=== PATIENT | female | born 1980 | race Caucasian/White ===

== ENCOUNTER 2018-09-13 16:53 | Outpatient (CLI) | payer OTHER ==
[~2018-09-13] VITALS: Ht 147.3 cm; Wt 65.0 kg
[~2018-09-13 16:53] MED LIST: ALBU8.5H5 INH; ETON1VAG VG; METH10TA6 PO; POTASSIUM IODINE PO
== END 2018-09-13 23:59 | disposition home or self-care (01) ==
LOC: MERGE 16:53 → LDOP 16:53 → UNMERGE 16:53 → LDOP 23:59
PROVIDERS: ATTEND Obstetrics & Gynecology
DX: O09.513 Supervision of elderly primigravida, third trimester (principal); O36.8130 Decreased fetal movements, third trimester, not applicable or unspecified; Z3A.33 33 weeks gestation of pregnancy
CPT/HCPCS: 59025; 76819; 99201; G0463

== ENCOUNTER 2018-10-16 13:40 | Inpatient (IN) | payer OTHER ==
[~2018-10-16] VITALS: Ht 147.3 cm; Wt 65.5 kg
[2018-10-26] MEDS ORDERED: OXYTOCIN 30U/ 0.9% NaCL 500ML 500 ML IV ONE (08:11)
[2018-10-26] MEDS ORDERED: AMPICILLIN 2 GM in SODIUM CHLORIDE 0.9% 100 ML IVPB ONE (08:11)
[2018-10-26] MEDS ORDERED: OXYTOCIN 30U/ 0.9% NaCL 500ML 500 ML IV PRN (08:11)
[2018-10-26 08:31] LABS: BASOPHILS # (AUTO) 0.05 x10^3/uL (0-0.1); BASOPHILS % (AUTO) 0 % (0-1); EOSINOPHILS # (AUTO) 0.26 x10^3/uL (0-0.4); EOSINOPHILS % (AUTO) 2 % (1-7); LYMPHOCYTES # (AUTO) 2.12 x10^3/uL (1-3.4); LYMPHOCYTES % (AUTO) 17 % (22-44); MD NO; MEAN CORPUSCULAR HEMOGLOBIN 30.8 pg (27.0-34.8); MEAN CORPUSCULAR VOLUME 93.1 fL (80-100); MEAN PLATELET VOLUME 8.6 fL (7.4-10.4); MONOCYTES # (AUTO) 0.87 x10^3/uL (0.2-0.8); MONOCYTES % (AUTO) 7 % (2-9); NEUTROPHILS # (AUTO) 9.17 x10^3/uL (1.8-6.8); NEUTROPHILS % (AUTO) 74 % (42-75); PLATELET COUNT 158 x10^3/uL (130-400); RED BLOOD COUNT 3.91 x10^6/uL (3.82-5.3); RED CELL DISTRIBUTION WIDTH 13.8 % (9.6-15.2)
[2018-10-26] MEDS ORDERED: OXYTOCIN 30U/ 0.9% NaCL 500ML 500 ML ONE (08:41)
[2018-10-26] MEDS: LACTATED RINGERS 1,000 ML IV SCH ×3 (08:46→18:33)
[2018-10-26] MEDS ORDERED: PLEASE ENTER HEIGHT AND WEIGHT MC SCH (09:00)
[2018-10-26 09:24] VITALS: BP 108/66
[2018-10-26] MEDS ORDERED: NEWBORN KIT ONE (10:03)
[2018-10-26] MEDS: AMPICILLIN 1 GM in SODIUM CHLORIDE 0.9% 100 ML IVPB SCH ×3 (12:19→20:30)
[2018-10-26] MEDS ORDERED: FENTANYL PF 100 MCG/2ML ONE ×4 (14:03→17:22)
[2018-10-26] MEDS: FENTANYL PF 100 MCG/2ML IVPush PRN ×4 (14:05→17:23)
[2018-10-26] MEDS ORDERED: ONDANSETRON 2MG/ML, 2ML ONE (15:43)
[2018-10-26] MEDS ORDERED: ONDANSETRON 2MG/ML, 2ML IVPush PRN ×2 (16:00→19:00)
[2018-10-26] MEDS: D5%-LACTATED RINGERS 1,000 ML IV SCH ×2 (16:11→19:17)
[2018-10-26] MEDS ORDERED: FENTANYL/BUPIV./NS/PF 250 ML EPIDCONT ONE (18:00)
[2018-10-26] MEDS ORDERED: BUPIVACAINE 0.25% ONE (18:07)
[2018-10-26] MEDS ORDERED: PREN1TAB60 PO (18:14)
[2018-10-26] MEDS ORDERED: LEVO150T5 PO (18:15)
[2018-10-26] MEDS ORDERED: LACTATED RINGERS 1,000 ML IV SCH (18:54)
[2018-10-26] MEDS ORDERED: FENTANYL PF 500 MCG, BUPIVACAINE/PF 0.5%, 30ML 62.5 ML in SODIUM CHLORIDE 0.9% 177.5 ML EPIDCONT SCH (18:54)
[2018-10-26] MEDS ORDERED: NALOXONE 0.4 MG/ML, 1ML IVPush PRN (19:00)
[2018-10-26] MEDS ORDERED: EPHEDRINE 50 MG/ML, 1ML IVPush PRN (19:00)
[2018-10-26] MEDS ORDERED: LACTATED RINGERS 1,000 ML IVBOLUS PRN (19:00)
[2018-10-26] MEDS ORDERED: DIPHENHYDRAMINE 50 MG/ML, 1ML IVPush PRN (19:00)
[2018-10-26] MEDS ORDERED: MISOPROSTOL 200 MCG TABLET ONE (19:11)
[2018-10-26] MEDS ORDERED: LIDOCAINE 1%, 20ML ONE (19:11)
[2018-10-27] MEDS: D5%-LACTATED RINGERS 1,000 ML IV SCH (00:11)
[2018-10-27] MEDS ORDERED: SODIUM CITRATE/CITRIC ACID 15 ML UDC ONE (00:27)
[2018-10-27] MEDS ORDERED: METOCLOPRAMIDE 5 MG/ML, 2ML ONE (00:28)
[2018-10-27] MEDS ORDERED: LACTATED RINGERS 1,000 ML IVBOLUS ONE (01:00)
[2018-10-27] MEDS ORDERED: SODIUM CITRATE/CITRIC ACID 15 ML UDC PO ONE (01:00)
[2018-10-27] MEDS ORDERED: METOCLOPRAMIDE 5 MG/ML, 2ML IV ONE (01:00)
[2018-10-27] MEDS: AMPICILLIN 1 GM in SODIUM CHLORIDE 0.9% 100 ML IVPB SCH (01:01)
[2018-10-27] MEDS ORDERED: CLINDAMYCIN PMX 900MG/50ML 50 ML ONE (01:03)
[2018-10-27] MEDS: OXYTOCIN 30U/ 0.9% NaCL 500ML 500 ML IV SCH ×3 (02:24→22:24)
[2018-10-27] MEDS: LACTATED RINGERS 1,000 ML IV SCH ×6 (02:24→22:24)
[2018-10-27] MEDS ORDERED: ONDANSETRON 2MG/ML, 2ML IV PRN ×2 (02:30)
[2018-10-27] MEDS ORDERED: SIMETHICONE 80 MG CHEW TAB PO PRN (02:30)
[2018-10-27] MEDS ORDERED: METHYLERGONOVINE 0.2 MG/ML IM PRN (02:30)
[2018-10-27] MEDS ORDERED: OXYcodone 5 MG/5 ML ORAL.SOL UDC PO PRN (02:30)
[2018-10-27] MEDS ORDERED: MORPHINE SULFATE 4 MG/ML, 1ML IVPush PRN ×2 (02:30)
[2018-10-27] MEDS ORDERED: morphine SULFATE 10 MG/ML, 1ML IM PRN (02:30)
[2018-10-27] MEDS ORDERED: DEXAMETHASONE 4 MG/ML, 1ML IV PRN (02:30)
[2018-10-27] MEDS ORDERED: EPHEDRINE 50 MG/ML, 1ML IVPush PRN (02:30)
[2018-10-27] MEDS ORDERED: CARBOPROST TROMETHAMINE 250 MCG/ML, 1ML IM PRN (02:30)
[2018-10-27] MEDS ORDERED: MISOPROSTOL 200 MCG TABLET PR PRN (02:30)
[2018-10-27] MEDS ORDERED: ACETAMINOPHEN 325 MG TABLET PO PRN (02:30)
[2018-10-27] MEDS ORDERED: MEPERIDINE/PF 25MG/0.5ML IVPush PRN (02:30)
[2018-10-27] MEDS ORDERED: PROMETHAZINE 25 MG/ML, 1ML IV PRN (02:30)
[2018-10-27] MEDS ORDERED: FENTANYL PF 100 MCG/2ML IV PRN (02:30)
[2018-10-27] MEDS ORDERED: DIPHENHYDRAMINE 50 MG/ML, 1ML IM PRN (02:30)
[2018-10-27] MEDS ORDERED: OXYcodone 5 MG/5 ML ORAL.SOL UDC ONE (02:39)
[2018-10-27 03:15] VITALS: BP 128/73
[2018-10-27] MEDS: LEVOTHYROXINE 150 MCG TABLET PO SCH ×2 (06:00→07:13)
[2018-10-27 07:22] VITALS: BP 100/57
[2018-10-27] MEDS: OXYcodone/APAP 5/325MG TABLET PO PRN ×5 (07:41→22:22)
[2018-10-27] MEDS: DOCUSATE 100 MG CAPSULE PO PRN ×2 (07:41→22:22)
[2018-10-27] MEDS: PRENATAL VIT/IRON/FA 1 EACH TABLET PO SCH (07:41)
[2018-10-27 10:10] LABS: MEAN CORPUSCULAR HEMOGLOBIN 30.9 pg (27.0-34.8); MEAN CORPUSCULAR VOLUME 93.7 fL (80-100); MEAN PLATELET VOLUME 8.6 fL (7.4-10.4); PLATELET COUNT 110 x10^3/uL (130-400); RED BLOOD COUNT 3.12 x10^6/uL (3.82-5.3); RED CELL DISTRIBUTION WIDTH 13.4 % (9.6-15.2)
[2018-10-27 10:25] LABS: BASOPHILS # (AUTO) 0.03 x10^3/uL (0-0.1); BASOPHILS % (AUTO) 0 % (0-1); EOSINOPHILS # (AUTO) 0.01 x10^3/uL (0-0.4); EOSINOPHILS % (AUTO) 0 % (1-7); LYMPHOCYTES % (AUTO) 12 % (22-44); MD SCAN; MONOCYTES # (AUTO) 0.74 x10^3/uL (0.2-0.8); MONOCYTES % (AUTO) 5 % (2-9); NEUTROPHILS # (AUTO) 13.02 x10^3/uL (1.8-6.8); NEUTROPHILS % (AUTO) 83 % (42-75)
[2018-10-27 12:00] VITALS: BP 105/64
[2018-10-27] MEDS: IBUPROFEN 600 MG TABLET PO PRN ×2 (12:04→22:22)
[2018-10-27 16:33] VITALS: BP 108/70
[2018-10-27 20:20] VITALS: BP 114/75
[2018-10-28 01:00] VITALS: BP 98/60
[2018-10-28] MEDS: LACTATED RINGERS 1,000 ML IV SCH ×5 (02:24→19:38)
[2018-10-28] MEDS: OXYcodone/APAP 5/325MG TABLET PO PRN ×4 (04:57→22:06)
[2018-10-28] MEDS: IBUPROFEN 600 MG TABLET PO PRN ×3 (04:57→20:43)
[2018-10-28] MEDS: LEVOTHYROXINE 150 MCG TABLET PO SCH (06:14)
[2018-10-28] MEDS: OXYTOCIN 30U/ 0.9% NaCL 500ML 500 ML IV SCH ×2 (08:11→19:38)
[2018-10-28] MEDS: DOCUSATE 100 MG CAPSULE PO PRN ×2 (08:20→20:44)
[2018-10-28] MEDS: PRENATAL VIT/IRON/FA 1 EACH TABLET PO SCH (08:20)
[2018-10-28 08:25] VITALS: BP 107/66
[2018-10-28 20:45] VITALS: BP 127/47
[2018-10-29] MEDS: LACTATED RINGERS 1,000 ML IV SCH ×2 (01:51→02:31)
[2018-10-29] MEDS: IBUPROFEN 600 MG TABLET PO PRN ×3 (02:43→18:26)
[2018-10-29] MEDS: OXYcodone/APAP 5/325MG TABLET PO PRN ×3 (02:43→18:26)
[2018-10-29] MEDS: OXYTOCIN 30U/ 0.9% NaCL 500ML 500 ML IV SCH (04:30)
[2018-10-29 08:15] VITALS: BP 109/64
[2018-10-29] MEDS: PRENATAL VIT/IRON/FA 1 EACH TABLET PO SCH (11:37)
[2018-10-29] MEDS: DOCUSATE 100 MG CAPSULE PO PRN (11:37)
[2018-10-29] MEDS: LEVOTHYROXINE 150 MCG TABLET PO SCH (11:38)
[2018-10-29 19:30] VITALS: BP 133/75
[2018-10-30] MEDS: OXYcodone/APAP 5/325MG TABLET PO PRN ×3 (00:09→10:17)
[2018-10-30] MEDS: IBUPROFEN 600 MG TABLET PO PRN ×2 (00:09→06:16)
[2018-10-30] MEDS: DOCUSATE 100 MG CAPSULE PO PRN ×2 (00:09→10:16)
[2018-10-30] MEDS: LEVOTHYROXINE 150 MCG TABLET PO SCH (06:16)
[2018-10-30 07:08] VITALS: BP 118/72
[2018-10-30] MEDS ORDERED: OXYC-302 PO (08:59)
[2018-10-30] MEDS ORDERED: IBUP-1222 PO (08:59)
[2018-10-30] MEDS ORDERED: SENN-88 PO (09:00)
[2018-10-30] MEDS: PRENATAL VIT/IRON/FA 1 EACH TABLET PO SCH (10:16)
== END 2018-10-30 11:48 | disposition home or self-care (01) | DRG 788 ==
LOC: LDIP 10-26 07:55 → 2NW 10-27 03:55
PROVIDERS: ADMIT Obstetrics & Gynecology; ATTEND Obstetrics & Gynecology
PROC: 10D00Z1 Extraction of Products of Conception, Low, Open Approach (ICD-10-PCS; principal; 2018-10-27)
DX: O36.5930 Maternal care for other known or suspected poor fetal growth, third trimester, not applicable or unspecified (principal); O69.1XX0 Labor and delivery complicated by cord around neck, with compression, not applicable or unspecified; O62.1 Secondary uterine inertia; O76 Abnormality in fetal heart rate and rhythm complicating labor and delivery; O77.0 Labor and delivery complicated by meconium in amniotic fluid; O99.284 Endocrine, nutritional and metabolic diseases complicating childbirth; E03.9 Hypothyroidism, unspecified; O99.824 Streptococcus B carrier state complicating childbirth; Z3A.39 39 weeks gestation of pregnancy; Z37.0 Single live birth
CPT/HCPCS: 36415; J7121; S0020; 82803; 85025; 86850; 86900; G0378; J0290; J2405; J3010; J3490; J2590; J2765; J7050; J7120